=== PATIENT | male | born 1930 | race Caucasian/White ===

== ENCOUNTER 2018-03-15 22:21 | Observation (INO) ==
--- NOTE | 2018-03-15 23:38 | XR ---
EXAM DATE: 03/15/2018 11:13 PM EDT AGE/SEX: 87 years / Male INDICATIONS: Short of breath. CLINICAL DATA: This is the patient's initial encounter. Patient reports that signs and symptoms have been present for 1 day and indicates a pain score of 0/10. MEDICAL/SURGICAL HISTORY: Non-responsive. Non-responsive. COMPARISON: . FINDINGS: Mild patchy airspace disease in the medial right lower lung zone and in the left lower lung zone. The cardiomediastinal contours are unremarkable. Osseous structures are intact. CONCLUSION: 1. Mild patchy airspace disease in the medial right lower lung zone and left lower lung zone near th e base. Findings may reflect atelectasis although aspiration cannot be excluded in the appropriate cl inical setting. Electronically signed by: Renny Spears MD 03/15/2018 11:37 PM EDT
[2018-03-15] MEDS: Sod Chloride 0.9% Inj 1,000 ML IV.CONT SCH (23:58)
[2018-03-16] MEDS ORDERED: Pantoprazole Inj 80 MG in Sodium Chlor 0.9% Inj 35 ML IV.SIG ONE (00:03)
--- NOTE | 2018-03-16 00:03 | ED ---
HPI General Chief complaint: Medical Clearance Stated complaint: Blood in stool Time Seen by Provider: 03/15/18 23:12 Source: patient Mode of arrival: EMS Limitations: no limitations History of Present Illness HPI narrative: The patient is an 87 year old male who presents to the [facility] emergency department with a history of having 2 episodes of bloody stool prior to arrival this evening. The patient reports that there was a lot of blood in the toilet when he went on the second occasion. He denies ever having a GI bleed previously. He does not recall ever having a colonoscopy. The patient was brought in by ambulance services. He denies taking any blood thinners, however he reports that he is on 1 low-dose aspirin daily. He denies having any abdominal pain. He denies having any lightheaded sensation, or shortness of breath. On review of systems otherwise, the patient denies having any known recent fevers, headache, cough, congestion, neck pain, vomiting, diarrhea, urinary symptoms, or neurologic symptoms. Related Data Home Medications Medication Instructions Recorded Confirmed aspirin [Aspirin Low Dose] 81 mg PO DAILY 03/16/18 03/16/18 Allergies Allergy/AdvReac Type Severity Reaction Status Date / Time No Known Allergies Allergy Unknown Uncoded 09/30/06 12:51 Review of Systems ROS: all other systems reviewed are negative PMFSH History History Provided By: Patient Surgical History Surgical History History of knee surgery (Acute) Family History Family History Other Abdominal aortic aneurysm Social History Social History Substance History: No History of Abuse Second Hand Smoke Exposure: No Smoking Status: Never smoker How Often Do You Have a Drink Containing Alcohol: Monthly or less Recent Travel in [facility] within the Last 8 Weeks: No Recent Out of Country Travel within the Last 8 Weeks: No Exam Const General: cooperative, no acute distress and well developed Nutritional Appearance: well nourished Orientation: alert, awake and oriented x3 HENMT Head: normocephalic and atraumatic Nose: no nasal discharge and no epistaxis Mouth: moist mucous membranes Throat: posterior oropharynx normal and uvula midline Eyes Sclera: normal sclerae Pupils: PERRL Neck Neck: no meningeal signs, trachea midline and no JVD Resp Effort & Inspection: no use of accessory muscles Auscultation: clear to auscultation bilaterally Cardio Rate: regular rate Rhythm: regular rhythm Heart Sounds: no murmurs GI Inspection: non-distended Palpation: soft, no hepatosplenomegaly, no guarding, not rigid and nontender Auscultation: normal bowel sounds Rectal Exam: No mass and other (The patient has a hemorrhoidal tag noted, no thrombosed hemorrhoid or anal fissures noted. No tenderness. Normal rectal tone. The patient does have maroon colored blood in the vault. This is Hemoccult positive.) Back/Spine/Pelvis Back: no CVA tenderness Skin General: dry skin (warm) Neuro General: alert, awake and oriented x3 Cranial Nerves: CN's II-XI intact bilaterally Speech: speech normal Motor: strength 5/5 throughout and no movement abnormalities noted Sensory Exam: no sensory deficits noted Extrem General: normal to inspection (2+ pulses in all 4 extremities.), no calf tenderness, no clubbing, no cyanosis and edema (Trace pedal edema bilateral lower extremities.) Laterality: bilaterally Psych Mood: congruent mood Affect: normal affect Judgment: judgment good Course Reevaluation(s) Reevaluation #1: During the patient's observation in the emergency department, the patient did have one episode of large bloody bowel movement. Consultations Consultation #1: The patient's case including history, pertinent physical examination findings, and laboratory studies were discussed with Dr. Sears. It was agreed that the patient would be admitted to the hospitalist service. Initial Documented Vital Signs Temperature 98.3 F 03/15/18 22:50 Pulse Rate 60 03/15/18 22:50 Respiratory Rate 16 03/15/18 22:50 Blood Pressure 170/80 H 03/15/18 22:50 Pulse Oximetry 94 L 03/15/18 22:50 Last Documented Vital Signs Temperature 97.4 F L 03/16/18 16:00 Pulse Rate 71 03/16/18 16:00 Respiratory Rate 17 03/16/18 16:00 Blood Pressure 134/72 03/16/18 16:00 Pulse Oximetry 94 L 03/16/18 16:00 Medical Decision Making MDM Narrative Medical decision making narrative: During the course of the patient's emergency department visit, the patient's history, examination, and differential diagnosis were reviewed with the patient. The patient was placed on a monitoring analyst with oximetry and frequent blood pressure monitoring. The patient had IV access obtained and blood work sent for analysis. A diagnostic evaluation was started regarding the patient's GI bleed. The patient was initially provided normal saline IV fluids. The patient will be started on Protonix 80 mg IV followed by a Protonix drip. The patient's diagnostic studies are remarkable for a white count of 6.6, hemoglobin 14.5, platelets 224 with monocytes 13.9, PT 11.4, INR 1.1, PTT 25.9, chemistry is remarkable for a sodium of 146, chloride 111, BUN 23, GFR 76, calcium 8.2, ammonia levels elevated at 41, troponin I is less than 0.02. The patient had a chest x-ray done that showed mild patchy airspace disease in the medial right lower lung zone and left lower lung zone near the base findings may reflect atelectasis although aspiration cannot be excluded in the appropriate clinical setting according to the reading radiologist. Patient denies any vomiting and has had no symptoms regarding aspiration, therefore I believe this is atelectasis. The patient will be admitted to the hospital for GI bleed. The patient's results were discussed with the patient, including the plan of care. I explained that further testing and/ or monitoring is indicated based on the patient's history, examination, and/ or laboratory findings. Therefore, I recommended admission for additional evaluation. The patient expressed understanding and was agreeable with this plan. The patient was admitted to the hospital in stable condition and sent to a bed under the care of the [facility] service. Medical Screen Exam Complete: Yes Emergency Medical Condition: Yes Differential Diagnosis Differential Diagnosis: Diverticulosis, versus AVM malformation, versus peptic ulcer bleed, versus variceal bleed Medical Records Medical records reviewed: Yes I reviewed the patient's medical records. Lab Data Lab results reviewed: Yes I reviewed the patient's lab results. Result diagrams: 03/16/18 11:30 03/15/18 23:48 Lab Results 03/15/18 03/15/18 03/15/18 Range/Units 23:48 23:48 23:48 WBC 6.6 (4.0-11.0) th/mm3 RBC 4.66 (4.50-5.90) mil/mm3 Hgb 14.5 (13.0-17.0) gm/dL Hct 43.8 (39.0-51.0) % MCV 94.1 (80.0-100.0) fL MCH 31.2 (27.0-34.0) pg MCHC 33.2 (32.0-36.0) % RDW 13.8 (11.6-17.2) % Plt Count 224 (150-450) th/mm3 MPV 8.2 (7.0-11.0) fL Neut % (Auto) 55.3 (16.0-70.0) % Lymph % (Auto) 24.0 (9.0-44.0) % [place] % (Auto) 13.9 H (0.0-8.0) % Eos % (Auto) 5.9 H (0.0-4.0) % Baso % (Auto) 0.9 (0.0-2.0) % Neut # (Auto) 3.7 (1.8-7.7) th/mm3 Lymph # (Auto) 1.6 (1.0-4.8) th/mm3 [place] # (Auto) 0.9 (0.0-0.9) th/mm3 Eos # (Auto) 0.4 (0.0-0.4) th/mm3 Baso # (Auto) 0.1 (0.0-0.2) th/mm3 WBC Differential . Differential Comment Auto diff final PT 11.4 (9.8-11.6) sec INR 1.1 Ratio APTT 25.9 (24.3-30.1) sec Sodium (136-145) meq/L Potassium (3.5-5.1) meq/L Chloride (98-107) meq/L Carbon Dioxide (21.0-32.0) meq/L Anion Gap (5-15) meq/L BUN (7-18) mg/dL Creatinine (0.60-1.30) mg/dL Estimated GFR (>89) mL/min Random Glucose (74-106) mg/dL Calcium (8.5-10.1) mg/dL Magnesium (1.5-2.5) mg/dL Total Bilirubin (0.2-1.0) mg/dL AST (15-37) U/L ALT (12-78) U/L Alkaline Phosphatase (45-117) U/L Ammonia 41 H (11-32) mcmol/L Troponin I (0.02-0.05) ng/mL Total Protein (6.4-8.2) g/dL Albumin (3.4-5.0) g/dL Lipase (73-393) U/L Blood Type Blood Type Recheck Antibody Screen 03/15/18 03/15/18 03/16/18 Range/Units 23:48 23:48 03:23 WBC (4.0-11.0) th/mm3 RBC (4.50-5.90) mil/mm3 Hgb 13.7 (13.0-17.0) gm/dL Hct 40.7 (39.0-51.0) % MCV (80.0-100.0) fL MCH (27.0-34.0) pg MCHC (32.0-36.0) % RDW (11.6-17.2) % Plt Count (150-450) th/mm3 MPV (7.0-11.0) fL Neut % (Auto) (16.0-70.0) % Lymph % (Auto) (9.0-44.0) % [place] % (Auto) (0.0-8.0) % Eos % (Auto) (0.0-4.0) % Baso % (Auto) (0.0-2.0) % Neut # (Auto) (1.8-7.7) th/mm3 Lymph # (Auto) (1.0-4.8) th/mm3 [place] # (Auto) (0.0-0.9) th/mm3 Eos # (Auto) (0.0-0.4) th/mm3 Baso # (Auto) (0.0-0.2) th/mm3 WBC Differential Differential Comment PT (9.8-11.6) sec INR Ratio APTT (24.3-30.1) sec Sodium 146 H (136-145) meq/L Potassium 4.2 (3.5-5.1) meq/L Chloride 111 H (98-107) meq/L Carbon Dioxide 28.6 (21.0-32.0) meq/L Anion Gap 6 (5-15) meq/L BUN 23 H (7-18) mg/dL Creatinine 0.94 (0.60-1.30) mg/dL Estimated GFR 76 L (>89) mL/min Random Glucose 106 (74-106) mg/dL Calcium 8.2 L (8.5-10.1) mg/dL Magnesium 2.2 (1.5-2.5) mg/dL Total Bilirubin 0.8 (0.2-1.0) mg/dL AST 23 (15-37) U/L ALT 27 (12-78) U/L Alkaline Phosphatase 68 (45-117) U/L Ammonia (11-32) mcmol/L Troponin I Less than 0.02 L (0.02-0.05) ng/mL Total Protein 6.5 (6.4-8.2) g/dL Albumin 3.5 (3.4-5.0) g/dL Lipase 93 (73-393) U/L Blood Type A Positive Blood Type Recheck Required Antibody Screen Negative 03/16/18 Range/Units 11:30 WBC (4.0-11.0) th/mm3 RBC (4.50-5.90) mil/mm3 Hgb 13.1 (13.0-17.0) gm/dL Hct 39.7 (39.0-51.0) % MCV (80.0-100.0) fL MCH (27.0-34.0) pg MCHC (32.0-36.0) % RDW (11.6-17.2) % Plt Count (150-450) th/mm3 MPV (7.0-11.0) fL Neut % (Auto) (16.0-70.0) % Lymph % (Auto) (9.0-44.0) % [place] % (Auto) (0.0-8.0) % Eos % (Auto) (0.0-4.0) % Baso % (Auto) (0.0-2.0) % Neut # (Auto) (1.8-7.7) th/mm3 Lymph # (Auto) (1.0-4.8) th/mm3 [place] # (Auto) (0.0-0.9) th/mm3 Eos # (Auto) (0.0-0.4) th/mm3 Baso # (Auto) (0.0-0.2) th/mm3 WBC Differential Differential Comment PT (9.8-11.6) sec INR Ratio APTT (24.3-30.1) sec Sodium (136-145) meq/L Potassium (3.5-5.1) meq/L Chloride (98-107) meq/L Carbon Dioxide (21.0-32.0) meq/L Anion Gap (5-15) meq/L BUN (7-18) mg/dL Creatinine (0.60-1.30) mg/dL Estimated GFR (>89) mL/min Random Glucose (74-106) mg/dL Calcium (8.5-10.1) mg/dL Magnesium (1.5-2.5) mg/dL Total Bilirubin (0.2-1.0) mg/dL AST (15-37) U/L ALT (12-78) U/L Alkaline Phosphatase (45-117) U/L Ammonia (11-32) mcmol/L Troponin I (0.02-0.05) ng/mL Total Protein (6.4-8.2) g/dL Albumin (3.4-5.0) g/dL Lipase (73-393) U/L Blood Type Blood Type Recheck Antibody Screen Imaging Data Radiologist's impression: Chest X-Ray 03/15/18 23:13 CONCLUSION: 1. Mild patchy airspace disease in the medial right lower lung zone and left lower lung zone near the base. Findings may reflect atelectasis although aspiration cannot be excluded in the appropriate clinical setting. Discharge Plan Discharge Disposition Patient Disposition: 30 Still Patient Discharge Details Diagnosis: Acute GI bleeding Physicians Team ED Provider: Milla Sosa Primary Care Provider: UNKNOWN, Attending Provider: Tino Alvarado Other Providers: Donald Luis Discharge Interventions Interventions: ED Discharge Assessment Last Done: 03/16/18 05:23 Status ED Status: Left Department Discharge Information Discharge Date/Time: 03/16/18 04:30
[2018-03-16 00:11] LABS: Baso # (Auto) 0.1 th/mm3 (0.0-0.2); Baso % (Auto) 0.9 % (0.0-2.0); Eos # (Auto) 0.4 th/mm3 (0.0-0.4); Eos % (Auto) 5.9 % (0.0-4.0); Hematocrit 43.8 % (39.0-51.0); Hemoglobin 14.5 gm/dL (13.0-17.0); Lymph # (Auto) 1.6 th/mm3 (1.0-4.8); Mean Corpuscular HGB Conc 33.2 % (32.0-36.0); Mean Corpuscular Hemoglobin 31.2 pg (27.0-34.0); Mean Corpuscular Volume 94.1 fL (80.0-100.0); Mean Platelet Volume 8.2 fL (7.0-11.0); Mono # (Auto) 0.9 th/mm3 (0.0-0.9); Mono % (Auto) 13.9 % (0.0-8.0); Neut # (Auto) 3.7 th/mm3 (1.8-7.7); Neut % (Auto) 55.3 % (16.0-70.0); Platelet Count 224 th/mm3 (150-450); Red Blood Count 4.66 mil/mm3 (4.50-5.90); Red Cell Distribution Width 13.8 % (11.6-17.2); White Blood Count 6.6 th/mm3 (4.0-11.0)
[2018-03-16 00:21] LABS: Activated Partial Thrombo Time 25.9 sec (24.3-30.1); INR 1.1 Ratio; Prothrombin Time 11.4 sec (9.8-11.6)
[2018-03-16 00:29] LABS: Alanine Aminotransferase 27 U/L (12-78); Albumin 3.5 g/dL (3.4-5.0); Anion Gap 6 meq/L (5-15); Aspartate Aminotransferase 23 U/L (15-37); Blood Urea Nitrogen 23 mg/dL (7-18); Calcium 8.2 mg/dL (8.5-10.1); Carbon Dioxide 28.6 meq/L (21.0-32.0); Chloride 111 meq/L (98-107); Glomerular Filtration Rate 76 mL/min (>89); Glucose,Random 106 mg/dL (74-106); Lipase 93 U/L (73-393); Magnesium 2.2 mg/dL (1.5-2.5); Potassium 4.2 meq/L (3.5-5.1); Sodium 146 meq/L (136-145)
[2018-03-16 00:32] LABS: Alkaline Phosphatase 68 U/L (45-117); Total Protein 6.5 g/dL (6.4-8.2)
[2018-03-16] MEDS: Pantoprazole Inj 80 MG in Sodium Chlor 0.9% Inj 100 ML IV.CONT SCH ×2 (01:43→12:21)
--- NOTE | 2018-03-16 02:51 | P.HP ---
History of Present Illness Service: [facility] Primary Care Physician: UNKNOWN History of Present Illness: 87-year-old male with past medical history significant for hyperlipidemia presents to the emergency department for the evaluation of 2 episodes of bright red blood in his stool. The patient reports he had 2 episodes of large volume bloody stool prior to his arrival in the emergency department. He states during the second episode he became diaphoretic. He denies any dizziness or lightheadedness. No chest pain or shortness of breath. He takes aspirin daily. He is not on the other anticoagulation. No abdominal pain. No nausea/ vomiting. No fevers/chills. No lateralizing signs/symptoms. Review of Systems All other systems reviewed negative except as stated [facility] - History History Provided By: Patient - Medical History Medical History: Medical History (Last Reviewed 03/16/18 @ 02:48 by Brenda Sears MD) High cholesterol Osteoarthritis - Surgical History Surgical History: Surgical History (Last Updated 03/16/18 @ 02:48 by Brenda Sears MD) History of knee surgery - Family History Family History: Family History (Last Updated 03/16/18 @ 02:48 by Brenda Sears MD) Other Abdominal aortic aneurysm - Tobacco History Second Hand Smoke Exposure: No Smoking Status: Never smoker - Alcohol History How Often Do You Have a Drink Containing Alcohol: Monthly or less - Substance Use History Substance History: No History of Abuse - Travel History Recent Travel in the [place] Within the Last 8 Weeks: No Recent Travel Out of the Country Within the Last 8 Weeks: No - Immunization History Tetanus Immunization: Unsure Hx Influenza Vaccine This Season: Yes Medications and Allergies Active Medications: Active Medications Sodium Chloride (Ns Inj) 1,000 mls @ 100 mls/hr IV.CONT .Q10H LALITA Last Admin: 03/15/18 23:58 Dose: 100 mls/hr Pantoprazole Sodium 80 mg/ (Sodium Chloride) 100 mls @ 10 mls/hr IV.CONT CONT LALITA Last Admin: 03/16/18 01:43 Dose: 10 mls/hr Sodium Chloride (Ns Inj) 1,000 mls @ 125 mls/hr IV.CONT .Q8H LALITA Ondansetron HCl (Zofran Inj) 4 mg IV.PUSH Q6H PRN PRN Reason: NAUSEA Sodium Chloride (Ns Flush) 2 ml IV.FLUSH PRN PRN PRN Reason: FLUSH AFTER USING IV ACCESS Sodium Chloride (Ns Flush) 2 ml IV.FLUSH BID LALITA Sodium Chloride (Ns Flush) 2 ml IV.FLUSH PRN PRN PRN Reason: FLUSH AFTER USING IV ACCESS Allergies Allergy/AdvReac Type Severity Reaction Status Date / Time No Known Allergies Allergy Unknown Uncoded 09/30/06 12:51 Home Medications Medication Instructions Recorded Confirmed Type aspirin [Aspirin Low Dose] 81 mg PO DAILY 03/16/18 03/16/18 History Exam Vital signs: Vital Signs 03/15/18 22:50 03/16/18 00:00 03/16/18 01:00 Temperature 98.3 F Pulse Rate 60 56 L 58 L Respiratory Rate 16 Blood Pressure 170/80 H 146/75 H 160/77 H Pulse Oximetry 94 L 95 97 03/16/18 02:00 Temperature Pulse Rate 58 L Respiratory Rate Blood Pressure 176/84 H Pulse Oximetry 96 Intake & Output 03/15/18 03/15/18 03/16/18 06:59 18:59 06:59 Intake Total 35 / 35 Balance 35 / 35 Intake: IV 35 / 35 Protonix Inj 80 MG In NS Inj 35 35 / 35 ML @ 420 mls/hr IV.SIG BOLUS ONE Rx#:[id number] Narrative: Gen.: No acute distress Head: Normocephalic. Atraumatic. EENT: Pupils equal round and reactive to light. Nose without drainage. Airway intact. Throat without injection. Cardiovascular: Regular rate and rhythm. No murmurs, rubs or gallops. Respiratory: Lungs clear to auscultation bilaterally. No wheezes or rhonchi. Abdomen: Soft, nontender, nondistended. No peritoneal signs. Musculoskeletal: No gross deformities. No edema. Skin: No obvious rashes or erythema. Neuro: Sensory and motor grossly intact. Cranial nerves II through XII grossly intact. Results - Labs CBC & Chem 7: 03/15/18 23:48 03/15/18 23:48 Labs: Laboratory Results - last 24 hr 03/15/18 03/15/18 03/15/18 23:48 23:48 23:48 WBC 6.6 RBC 4.66 Hgb 14.5 Hct 43.8 MCV 94.1 MCH 31.2 MCHC 33.2 RDW 13.8 Plt Count 224 MPV 8.2 Neut % (Auto) 55.3 Lymph % (Auto) 24.0 [place] % (Auto) 13.9 H Eos % (Auto) 5.9 H Baso % (Auto) 0.9 Neut # (Auto) 3.7 Lymph # (Auto) 1.6 [place] # (Auto) 0.9 Eos # (Auto) 0.4 Baso # (Auto) 0.1 WBC Differential . Differential Comment Auto diff final PT 11.4 INR 1.1 APTT 25.9 Sodium Potassium Chloride Carbon Dioxide Anion Gap BUN Creatinine Estimated GFR Random Glucose Calcium Magnesium Total Bilirubin AST ALT Alkaline Phosphatase Ammonia 41 H Troponin I Total Protein Albumin Lipase Blood Type Blood Type Recheck Antibody Screen 03/15/18 03/15/18 23:48 23:48 WBC RBC Hgb Hct MCV MCH MCHC RDW Plt Count MPV Neut % (Auto) Lymph % (Auto) [place] % (Auto) Eos % (Auto) Baso % (Auto) Neut # (Auto) Lymph # (Auto) [place] # (Auto) Eos # (Auto) Baso # (Auto) WBC Differential Differential Comment PT INR APTT Sodium 146 H Potassium 4.2 Chloride 111 H Carbon Dioxide 28.6 Anion Gap 6 BUN 23 H Creatinine 0.94 Estimated GFR 76 L Random Glucose 106 Calcium 8.2 L Magnesium 2.2 Total Bilirubin 0.8 AST 23 ALT 27 Alkaline Phosphatase 68 Ammonia Troponin I Less than 0.02 L Total Protein 6.5 Albumin 3.5 Lipase 93 Blood Type A Positive Blood Type Recheck Required Antibody Screen Negative - Imaging Impressions Chest X-Ray 03/15/18 23:13 CONCLUSION: 1. Mild patchy airspace disease in the medial right lower lung zone and left lower lung zone near the base. Findings may reflect atelectasis although aspiration cannot be excluded in the appropriate clinical setting. Caprini VTE Risk Assessment Caprini VTE Risk Assessment: Moderate/High Risk (score >= 2) Caprini Risk Assessment Model: Point Value = 1 Point Value = 2 Point Value = 3 Point Value = 5 Age 41-60 Minor surgery BMI > 25 kg/m2 Swollen legs Varicose veins or History of unexplained or recurrent spontaneous Oral contraceptives or hormone replacement Sepsis (< 1 month) Serious lung disease, including pneumonia (< 1 month) Abnormal pulmonary function Acute myocardial infarction Congestive heart failure (< 1 month) History of inflammatory bowel disease Medical patient at bed rest Age 61-74 Arthroscopic surgery Major open surgery (> 45 min) Laparoscopic surgery (> 45 min) Malignancy Confined to bed (> 72 hours) Immobilizing plaster cast Central venous access Age >= 75 History of VTE Family history of VTE Factor V Leiden Prothrombin [id number] Lupus anticoagulant Anticardiolipin antibodies Elevated serum homocysteine Heparin-induced thrombocytopenia Other congenital or acquired thrombophilia Stroke (< 1 month) Elective arthroplasty Hip, pelvis, or leg fracture Acute spinal cord injury (< 1 month) Prophylaxis Regimen: Total Risk Factor Score Risk Level Prophylaxis Regimen 0-1 Low Early ambulation 2 Moderate Order ONE of the following: *Sequential Compression Device (SCD) *Heparin 5000 units SQ BID 3-4 Higher Order ONE of the following medications: *Heparin 5000 units SQ TID *Enoxaparin/Lovenox 40 mg SQ daily (WT < 150 kg, CrCl > 30 mL/min) *Enoxaparin/Lovenox 30 mg SQ daily (WT < 150 kg, CrCl > 10-29 mL/min) *Enoxaparin/Lovenox 30 mg SQ BID (WT < 150 kg, CrCl > 30 mL/min) AND/OR *Sequential Compression Device (SCD) 5 or more Highest Order ONE of the following medications: *Heparin 5000 units SQ TID (Preferred with Epidurals) *Enoxaparin/Lovenox 40 mg SQ daily (WT < 150 kg, CrCl > 30 mL/min) *Enoxaparin/Lovenox 30 mg SQ daily (WT < 150 kg, CrCl > 10-29 mL/min) *Enoxaparin/Lovenox 30 mg SQ BID (WT < 150 kg, CrCl > 30 mL/min) AND *Sequential Compression Device (SCD) Assessment and Plan - Plan Assessment/plan: 1. Lower GI bleed Serial H&H IV Protonix Gastroenterology consulted, appreciate assistance Holding home aspirin 2. Hyperlipidemia Patient is not currently on statin FEN N.p.o. Electrolytes: Monitor and replete as needed NS at 125 cc/hour Holding pharmacologic anticoagulation secondary to active GI bleed
[2018-03-16] MEDS: Sod Chloride 0.9% Inj 1,000 ML IV.CONT SCH ×4 (03:11→20:39)
[2018-03-16 04:06] LABS: Hematocrit 40.7 % (39.0-51.0); Hemoglobin 13.7 gm/dL (13.0-17.0)
[2018-03-16 11:58] LABS: Hematocrit 39.7 % (39.0-51.0); Hemoglobin 13.1 gm/dL (13.0-17.0)
--- NOTE | 2018-03-16 12:18 | P.CONGI ---
History of Present Illness Consult date: 03/16/18 Consult reason: Lower Chief complaint: GI Bleed History of Present Illness: This is a obese 87-year-old male who came in the hospital on 03/15/2018 with symptoms of rectal bleeding according to the patient and the record he had 2 large bloody bowel movements that started about 830 on 03/15/2018. Patient states that the bowel movements awakened him and he decided to come to the ER for further evaluation he had a total of 5 bright red bloody bowel movements since 830 this past p.m. patient denies any obvious dizziness or weakness but does note some occasional straining with defecation. Patient denies any major history of diarrhea or constipation and denies any obvious hematemesis. patient states his norm is 1 bowel movement daily usually in the a.m. Patient denies any previous colonoscopy or endoscopy and no family history of colon cancer. Current abdominal pain no fever no chills. Hemoglobin initially was 14.5 on admission now 13.7, bilirubin and LFTs is normal. Ammonia level 47 PT/INR 1.1. Gastroenterology has been consulted to assist in his care. <Ana Kimball - Last Filed: 03/16/18 12:11> Review of Systems All other systems reviewed negative except as stated in HPI <Ana Kimball - Last Filed: 03/16/18 12:11> PMFSH - History History Provided By: Patient - Medical History Medical History: Medical History (Last Reviewed 03/16/18 @ 02:48 by Brenda Sears MD) High cholesterol Osteoarthritis - Surgical History Surgical History: Surgical History (Last Updated 03/16/18 @ 02:48 by Brenda Sears MD) History of knee surgery - Family History Family History: Family History (Last Updated 03/16/18 @ 02:48 by Brenda Sears MD) Other Abdominal aortic aneurysm - Tobacco History Second Hand Smoke Exposure: No Smoking Status: Never smoker - Alcohol History How Often Do You Have a Drink Containing Alcohol: Monthly or less - Substance Use History Substance History: No History of Abuse - Travel History Recent Travel in the [facility] Within the Last 8 Weeks: No Recent Travel Out of the Country Within the Last 8 Weeks: No - Immunization History Tetanus Immunization: Unsure Hx Influenza Vaccine This Season: Yes <Ana Kimball - Last Filed: 03/16/18 12:11> - Medical History Medical History: Medical History (Last Reviewed 03/16/18 @ 02:48 by Brenda Sears MD) High cholesterol Osteoarthritis - Surgical History Surgical History: Surgical History (Last Updated 03/16/18 @ 02:48 by Brenda Sears MD) History of knee surgery - Family History Family History: Family History (Last Updated 03/16/18 @ 02:48 by Brenda Sears MD) Other Abdominal aortic aneurysm <Donald uLis E - Last Filed: 03/16/18 16:34> Medications and Allergies Active Medications: Active Medications Pantoprazole Sodium 80 mg/ (Sodium Chloride) 100 mls @ 10 mls/hr IV.CONT CONT [facility] Last Admin: 03/16/18 01:43 Dose: 10 mls/hr Sodium Chloride (Ns Inj) 1,000 mls @ 125 mls/hr IV.CONT .Q8H [facility] Last Admin: 03/16/18 03:11 Dose: 125 mls/hr Ondansetron HCl (Zofran Inj) 4 mg IV.PUSH Q6H PRN PRN Reason: NAUSEA Polyethylene Glycol/Electrolytes (Colyte Liq) 4,000 ml PO ONCE ONE Stop: 03/16/18 15:01 Sodium Chloride (Ns Flush) 2 ml IV.FLUSH BID [facility] Last Admin: 03/16/18 08:19 Dose: Not Given Sodium Chloride (Ns Flush) 2 ml IV.FLUSH PRN PRN PRN Reason: FLUSH AFTER USING IV ACCESS <Ana Kimball M - Last Filed: 03/16/18 12:11> Active Medications: Active Medications Pantoprazole Sodium 80 mg/ (Sodium Chloride) 100 mls @ 10 mls/hr IV.CONT CONT [facility] Last Admin: 03/16/18 12:21 Dose: 10 mls/hr Sodium Chloride (Ns Inj) 1,000 mls @ 125 mls/hr IV.CONT .Q8H [facility] Last Admin: 03/16/18 12:23 Dose: 125 mls/hr Ondansetron HCl (Zofran Inj) 4 mg IV.PUSH Q6H PRN PRN Reason: NAUSEA Sodium Chloride (Ns Flush) 2 ml IV.FLUSH BID [facility] Last Admin: 03/16/18 08:19 Dose: Not Given Sodium Chloride (Ns Flush) 2 ml IV.FLUSH PRN PRN PRN Reason: FLUSH AFTER USING IV ACCESS <Donald Luis - Last Filed: 03/16/18 16:34> Allergies Allergy/AdvReac Type Severity Reaction Status Date / Time No Known Allergies Allergy Unknown Uncoded 09/30/06 12:51 Home Medications Medication Instructions Recorded Confirmed Type aspirin [Aspirin Low Dose] 81 mg PO DAILY 03/16/18 03/16/18 History Exam Vital signs: Vital Signs 03/15/18 22:50 03/16/18 00:00 03/16/18 01:00 Temperature 98.3 F Pulse Rate 60 56 L 58 L Respiratory Rate 16 Blood Pressure 170/80 H 146/75 H 160/77 H Pulse Oximetry 94 L 95 97 03/16/18 02:00 03/16/18 04:00 03/16/18 08:00 Temperature 97.9 F 97.9 F Pulse Rate 58 L 50 L 45 L Respiratory Rate 18 17 Blood Pressure 176/84 H 162/81 H 90/52 L Pulse Oximetry 96 94 L 92 L 03/16/18 08:19 Temperature Pulse Rate 56 L Respiratory Rate Blood Pressure 127/65 Pulse Oximetry Intake & Output 03/15/18 03/16/18 03/16/18 18:59 06:59 18:59 Intake Total 35 / 35 Balance 35 / 35 Weight 101.5 kg Intake: IV 35 / 35 Protonix Inj 80 MG In NS Inj 35 35 / 35 ML @ 420 mls/hr IV.SIG [facility] Rx#:[id number] Oral 0 / 0 Other: Date of Last Bowel Movement 03/16/18 03/16/18 Weight On Admission 101.5 kg - Constitutional obese, cooperative - Routine HEENT Exam Head: Present: normocephalic ENT: Present: mucous membranes moist - Routine Respiratory Exam Present: accessory muscle use (No obvious shortness of breath) - Routine Cardiovascular Exam Present: S1, S2 - Routine Abdominal Exam Present: normoactive bowel sounds (Round, no obvious abdominal pain denies any cramping no distention) - Routine Skin Exam Present: intact - Routine Neurological Exam Present: alert <Ana Kimball - Last Filed: 03/16/18 12:11> Vital signs: Vital Signs 03/15/18 22:50 03/16/18 00:00 03/16/18 01:00 Temperature 98.3 F Pulse Rate 60 56 L 58 L Respiratory Rate 16 Blood Pressure 170/80 H 146/75 H 160/77 H Pulse Oximetry 94 L 95 97 03/16/18 02:00 03/16/18 04:00 03/16/18 08:00 Temperature 97.9 F 97.9 F Pulse Rate 58 L 50 L 45 L Respiratory Rate 18 17 Blood Pressure 176/84 H 162/81 H 90/52 L Pulse Oximetry 96 94 L 92 L 03/16/18 08:19 03/16/18 12:00 03/16/18 16:00 Temperature 98.2 F 97.4 F L Pulse Rate 56 L 68 71 Respiratory Rate 17 Blood Pressure 127/65 113/67 134/72 Pulse Oximetry 17 L 94 L Intake & Output 03/15/18 03/16/18 03/16/18 18:59 06:59 18:59 Intake Total 35 / 35 1100 / 1100 Balance 35 / 35 1100 / 1100 Weight 101.5 kg Intake: IV 35 / 35 1100 / 1100 Protonix Inj 80 MG In NS Inj 100 / 100 100 ML @ 10 mls/hr IV.CONT CONT [facility] Rx#:[id number] NS Inj 1,000 ML @ 125 mls/hr IV 1000 / 1000 .CONT .Q8H [facility] Rx#:[id number] Protonix Inj 80 MG In NS Inj 35 35 / 35 ML @ 420 mls/hr IV.SIG [facility] Rx#:[id number] Oral 0 / 0 Other: Date of Last Bowel Movement 03/16/18 03/16/18 Weight On Admission 101.5 kg <Donald Luis - Last Filed: 03/16/18 16:34> Results - Labs CBC & Chem 7: 03/16/18 11:30 03/15/18 23:48 Labs: Laboratory Results - last 24 hr 03/15/18 03/15/18 03/15/18 23:48 23:48 23:48 WBC 6.6 RBC 4.66 Hgb 14.5 Hct 43.8 MCV 94.1 MCH 31.2 MCHC 33.2 RDW 13.8 Plt Count 224 MPV 8.2 Neut % (Auto) 55.3 Lymph % (Auto) 24.0 [place] % (Auto) 13.9 H Eos % (Auto) 5.9 H Baso % (Auto) 0.9 Neut # (Auto) 3.7 Lymph # (Auto) 1.6 [place] # (Auto) 0.9 Eos # (Auto) 0.4 Baso # (Auto) 0.1 WBC Differential . Differential Comment Auto diff final PT 11.4 INR 1.1 APTT 25.9 Sodium Potassium Chloride Carbon Dioxide Anion Gap BUN Creatinine Estimated GFR Random Glucose Calcium Magnesium Total Bilirubin AST ALT Alkaline Phosphatase Ammonia 41 H Troponin I Total Protein Albumin Lipase Blood Type Blood Type Recheck Antibody Screen 03/15/18 03/15/18 03/16/18 23:48 23:48 03:23 WBC RBC Hgb 13.7 Hct 40.7 MCV MCH MCHC RDW Plt Count MPV Neut % (Auto) Lymph % (Auto) [place] % (Auto) Eos % (Auto) Baso % (Auto) Neut # (Auto) Lymph # (Auto) [place] # (Auto) Eos # (Auto) Baso # (Auto) WBC Differential Differential Comment PT INR APTT Sodium 146 H Potassium 4.2 Chloride 111 H Carbon Dioxide 28.6 Anion Gap 6 BUN 23 H Creatinine 0.94 Estimated GFR 76 L Random Glucose 106 Calcium 8.2 L Magnesium 2.2 Total Bilirubin 0.8 AST 23 ALT 27 Alkaline Phosphatase 68 Ammonia Troponin I Less than 0.02 L Total Protein 6.5 Albumin 3.5 Lipase 93 Blood Type A Positive Blood Type Recheck Required Antibody Screen Negative 03/16/18 11:30 WBC RBC Hgb 13.1 Hct 39.7 MCV MCH MCHC RDW Plt Count MPV Neut % (Auto) Lymph % (Auto) [place] % (Auto) Eos % (Auto) Baso % (Auto) Neut # (Auto) Lymph # (Auto) [place] # (Auto) Eos # (Auto) Baso # (Auto) WBC Differential Differential Comment PT INR APTT Sodium Potassium Chloride Carbon Dioxide Anion Gap BUN Creatinine Estimated GFR Random Glucose Calcium Magnesium Total Bilirubin AST ALT Alkaline Phosphatase Ammonia Troponin I Total Protein Albumin Lipase Blood Type Blood Type Recheck Antibody Screen - Imaging Impressions Chest X-Ray 03/15/18 23:13 CONCLUSION: 1. Mild patchy airspace disease in the medial right lower lung zone and left lower lung zone near the base. Findings may reflect atelectasis although aspiration cannot be excluded in the appropriate clinical setting. <Ana Kimball - Last Filed: 03/16/18 12:11> - Labs CBC & Chem 7: 03/16/18 11:30 03/15/18 23:48 Labs: Laboratory Results - last 24 hr 03/15/18 03/15/18 03/15/18 23:48 23:48 23:48 WBC 6.6 RBC 4.66 Hgb 14.5 Hct 43.8 MCV 94.1 MCH 31.2 MCHC 33.2 RDW 13.8 Plt Count 224 MPV 8.2 Neut % (Auto) 55.3 Lymph % (Auto) 24.0 [place] % (Auto) 13.9 H Eos % (Auto) 5.9 H Baso % (Auto) 0.9 Neut # (Auto) 3.7 Lymph # (Auto) 1.6 [place] # (Auto) 0.9 Eos # (Auto) 0.4 Baso # (Auto) 0.1 WBC Differential . Differential Comment Auto diff final PT 11.4 INR 1.1 APTT 25.9 Sodium Potassium Chloride Carbon Dioxide Anion Gap BUN Creatinine Estimated GFR Random Glucose Calcium Magnesium Total Bilirubin AST ALT Alkaline Phosphatase Ammonia 41 H Troponin I Total Protein Albumin Lipase Blood Type Blood Type Recheck Antibody Screen 03/15/18 03/15/18 03/16/18 23:48 23:48 03:23 WBC RBC Hgb 13.7 Hct 40.7 MCV MCH MCHC RDW Plt Count MPV Neut % (Auto) Lymph % (Auto) [place] % (Auto) Eos % (Auto) Baso % (Auto) Neut # (Auto) Lymph # (Auto) [place] # (Auto) Eos # (Auto) Baso # (Auto) WBC Differential Differential Comment PT INR APTT Sodium 146 H Potassium 4.2 Chloride 111 H Carbon Dioxide 28.6 Anion Gap 6 BUN 23 H Creatinine 0.94 Estimated GFR 76 L Random Glucose 106 Calcium 8.2 L Magnesium 2.2 Total Bilirubin 0.8 AST 23 ALT 27 Alkaline Phosphatase 68 Ammonia Troponin I Less than 0.02 L Total Protein 6.5 Albumin 3.5 Lipase 93 Blood Type A Positive Blood Type Recheck Required Antibody Screen Negative 03/16/18 11:30 WBC RBC Hgb 13.1 Hct 39.7 MCV MCH MCHC RDW Plt Count MPV Neut % (Auto) Lymph % (Auto) [place] % (Auto) Eos % (Auto) Baso % (Auto) Neut # (Auto) Lymph # (Auto) [place] # (Auto) Eos # (Auto) Baso # (Auto) WBC Differential Differential Comment PT INR APTT Sodium Potassium Chloride Carbon Dioxide Anion Gap BUN Creatinine Estimated GFR Random Glucose Calcium Magnesium Total Bilirubin AST ALT Alkaline Phosphatase Ammonia Troponin I Total Protein Albumin Lipase Blood Type Blood Type Recheck Antibody Screen - Imaging Impressions Chest X-Ray 03/15/18 23:13 CONCLUSION: 1. Mild patchy airspace disease in the medial right lower lung zone and left lower lung zone near the base. Findings may reflect atelectasis although aspiration cannot be excluded in the appropriate clinical setting. <Donald Luis - Last Filed: 03/16/18 16:34> Assessment and Plan - Plan 87-year-old male who came in the hospital on 03/15/2018 with symptoms of rectal bleeding according to the patient and the record he had 2 large bloody bowel movements that started about 830 on 03/15/2018. Patient states that the bowel movements awakened him and he decided to come to the ER for further evaluation he had a total of 5 bright red bloody bowel movements since 830 this past p.m. patient denies any obvious dizziness or weakness but does note some occasional straining with defecation. Patient denies any major history of diarrhea or constipation and denies any obvious hematemesis. patient states his norm is 1 bowel movement daily usually in the a.m. Patient denies any previous colonoscopy or endoscopy and no family history of colon cancer. Current abdominal pain no fever no chills. Hemoglobin initially was 14.5 on admission now 13.7, bilirubin and LFTs is normal. Ammonia level 47 PT/INR 1.1. Gastroenterology has been consulted to assist in his care. Bright red rectal bleeding could be related to hemorrhoids versus diverticular disease. No previous EGD or colonoscopy or colon cancer Mildly elevated ammonia level in the absence of any known liver disease, no encephalopathy noted Plan Diet clear liquids today Consent for colonoscopy in a.m. N.p.o. at midnight GoLYTELY prep Monitor labs and repeat ammonia level in a.m. Monitor hemoglobin and other labs Supportive care Further recommendations to follow Patient was seen per myself and Dr. Luis, note was written on his behalf <Ana Kimball M - Last Filed: 03/16/18 12:11> - Plan Patient seen and examined Agree with above Continue with current supportive care Monitor labs Plan for colonoscopy tomorrow <Donald Luis E - Last Filed: 03/16/18 16:34>
--- NOTE | 2018-03-16 13:30 | P.PN ---
Subjective Interval history: Follow-up visit for GI bleed. Patient seen and examined sitting up in bed having liquid meal in no acute distress. He denies any nausea, vomiting, abdominal pain or discomfort, dizziness, lightheadedness, cough or shortness of breath. He reports that he is feeling fine and was seen by a doctor and was told he will have a procedure tomorrow. Physical Exam Vital signs: Vital Signs 03/15/18 22:50 03/16/18 00:00 03/16/18 01:00 Temperature 98.3 F Pulse Rate 60 56 L 58 L Respiratory Rate 16 Blood Pressure 170/80 H 146/75 H 160/77 H Pulse Oximetry 94 L 95 97 03/16/18 02:00 03/16/18 04:00 03/16/18 08:00 Temperature 97.9 F 97.9 F Pulse Rate 58 L 50 L 45 L Respiratory Rate 18 17 Blood Pressure 176/84 H 162/81 H 90/52 L Pulse Oximetry 96 94 L 92 L 03/16/18 08:19 03/16/18 12:00 Temperature 98.2 F Pulse Rate 56 L 68 Respiratory Rate Blood Pressure 127/65 113/67 Pulse Oximetry 17 L Intake & Output 03/15/18 03/16/18 03/16/18 18:59 06:59 18:59 Intake Total 35 / 35 1100 / 1100 Balance 35 / 35 1100 / 1100 Weight 101.5 kg Intake: IV 35 / 35 1100 / 1100 Protonix Inj 80 MG In NS Inj 100 / 100 100 ML @ 10 mls/hr IV.CONT CONT [facility] Rx#:[id number] NS Inj 1,000 ML @ 125 mls/hr IV 1000 / 1000 .CONT .Q8H [facility] Rx#:[id number] Protonix Inj 80 MG In NS Inj 35 35 / 35 ML @ 420 mls/hr IV.SIG BOLUS ONE Rx#:[id number] Oral 0 / 0 Other: Date of Last Bowel Movement 03/16/18 03/16/18 Weight On Admission 101.5 kg Narrative: Gen.: No acute distress Head: Normocephalic. Atraumatic. EENT: Pupils equal round and reactive to light. Nose without drainage. Airway intact. Throat without injection. Cardiovascular: Regular rate and rhythm. No murmurs, rubs or gallops. Respiratory: Lungs clear to auscultation bilaterally. Abdomen: Soft, nontender, nondistended. Positive bowel sounds. Musculoskeletal: No gross deformities. No edema. Skin: No obvious rashes or erythema. Neuro: Sensory and motor grossly intact. Cranial nerves II through XII grossly intact. Results - Labs CBC & Chem 7: 03/16/18 11:30 03/15/18 23:48 Laboratory Results - last 24 hr 03/15/18 03/15/18 03/15/18 23:48 23:48 23:48 WBC 6.6 RBC 4.66 Hgb 14.5 Hct 43.8 MCV 94.1 MCH 31.2 MCHC 33.2 RDW 13.8 Plt Count 224 MPV 8.2 Neut % (Auto) 55.3 Lymph % (Auto) 24.0 [place] % (Auto) 13.9 H Eos % (Auto) 5.9 H Baso % (Auto) 0.9 Neut # (Auto) 3.7 Lymph # (Auto) 1.6 [place] # (Auto) 0.9 Eos # (Auto) 0.4 Baso # (Auto) 0.1 WBC Differential . Differential Comment Auto diff final PT 11.4 INR 1.1 APTT 25.9 Sodium Potassium Chloride Carbon Dioxide Anion Gap BUN Creatinine Estimated GFR Random Glucose Calcium Magnesium Total Bilirubin AST ALT Alkaline Phosphatase Ammonia 41 H Troponin I Total Protein Albumin Lipase Blood Type Blood Type Recheck Antibody Screen 03/15/18 03/15/18 03/16/18 23:48 23:48 03:23 WBC RBC Hgb 13.7 Hct 40.7 MCV MCH MCHC RDW Plt Count MPV Neut % (Auto) Lymph % (Auto) [place] % (Auto) Eos % (Auto) Baso % (Auto) Neut # (Auto) Lymph # (Auto) [place] # (Auto) Eos # (Auto) Baso # (Auto) WBC Differential Differential Comment PT INR APTT Sodium 146 H Potassium 4.2 Chloride 111 H Carbon Dioxide 28.6 Anion Gap 6 BUN 23 H Creatinine 0.94 Estimated GFR 76 L Random Glucose 106 Calcium 8.2 L Magnesium 2.2 Total Bilirubin 0.8 AST 23 ALT 27 Alkaline Phosphatase 68 Ammonia Troponin I Less than 0.02 L Total Protein 6.5 Albumin 3.5 Lipase 93 Blood Type A Positive Blood Type Recheck Required Antibody Screen Negative 03/16/18 11:30 WBC RBC Hgb 13.1 Hct 39.7 MCV MCH MCHC RDW Plt Count MPV Neut % (Auto) Lymph % (Auto) [place] % (Auto) Eos % (Auto) Baso % (Auto) Neut # (Auto) Lymph # (Auto) [place] # (Auto) Eos # (Auto) Baso # (Auto) WBC Differential Differential Comment PT INR APTT Sodium Potassium Chloride Carbon Dioxide Anion Gap BUN Creatinine Estimated GFR Random Glucose Calcium Magnesium Total Bilirubin AST ALT Alkaline Phosphatase Ammonia Troponin I Total Protein Albumin Lipase Blood Type Blood Type Recheck Antibody Screen - Imaging Impressions Chest X-Ray 03/15/18 23:13 CONCLUSION: 1. Mild patchy airspace disease in the medial right lower lung zone and left lower lung zone near the base. Findings may reflect atelectasis although aspiration cannot be excluded in the appropriate clinical setting. Assessment and Plan - Plan 87-year-old male with past medical history significant for HLD and osteoarthritis who presented to the emergency department on 03/15 after 2 episodes of bright red blood in his stool. Gastrointestinal bleed, lower -Gastroenterology consulted. Plans for colonoscopy tomorrow -Continue IV Protonix -Continue monitoring H&H, serial level stable, vital signs stable -Continue to hold aspirin Hyperlipidemia -Patient currently not on a statin. Can follow-up with PCP for lipid panel DVT prophylaxisSCDs secondary to GI bleed Discussed Condition With: Discussed with patient and RN. Discharge Planning: Plans for colonoscopy tomorrow. DC once cleared by GI.
[2018-03-16] MEDS ORDERED: PEG 3350/E-Lyte Soln 4000 ML Bottle PO ONE (15:00)
[2018-03-16 19:14] LABS: Hematocrit 33.2 % (39.0-51.0); Hemoglobin 11.8 gm/dL (13.0-17.0)
[2018-03-17 00:51] LABS: Hematocrit 33.7 % (39.0-51.0); Hemoglobin 11.4 gm/dL (13.0-17.0)
[2018-03-17] MEDS: Pantoprazole Inj 80 MG in Sodium Chlor 0.9% Inj 100 ML IV.CONT SCH ×2 (01:35→15:19)
[2018-03-17] MEDS: Sod Chloride 0.9% Inj 1,000 ML IV.CONT SCH ×3 (04:44→20:50)
[2018-03-17 07:47] LABS: Hematocrit 36.7 % (39.0-51.0); Hemoglobin 12.2 gm/dL (13.0-17.0)
[2018-03-17 08:20] LABS: Anion Gap 7 meq/L (5-15); Blood Urea Nitrogen 12 mg/dL (7-18); Calcium 7.6 mg/dL (8.5-10.1); Carbon Dioxide 25.4 meq/L (21.0-32.0); Chloride 113 meq/L (98-107); Glomerular Filtration Rate Greater Than 89 mL/min (>89); Glucose,Random 101 mg/dL (74-106); Sodium 145 meq/L (136-145)
[2018-03-17] MEDS ORDERED: Sodium Chlor 0.9% Inj 500 ML IV.CONT ONE (11:00)
[2018-03-17] MEDS ORDERED: Chlorhexidine Gluconate 2% 1 Pack (2 Cloths) TOPICAL ONE (11:00)
[2018-03-17] MEDS ORDERED: Metoprolol Tartrate 25 MG Tablet PO ONE (11:00)
--- NOTE | 2018-03-17 12:34 | P.PCN ---
Date of procedure: 03/17/18 Procedure: PROCEDURE PERFORMED Colonoscopy with snare polypectomy and biopsy PROCEDURE: The procedure, risks and benefits were discussed with Patient/POA and informed consent was obtained. Anesthesia sedated Patient with Diprivan. Patient was placed in the left lateral decubitus position. Colonoscopy: The Pentax videoscope was introduced through the rectum and advanced to cecum where the ileocecal valve and appendiceal orifice were identified. Retroflexion was performed in the rectum. Colonic prep was very good FINDINGS: Colonic withdrawal time greater than 6 minutes. As the scope was slowly withdrawn colonic mucosa was carefully inspected patient was noted to have a small nodule or bulging at the appendiceal orifice of unclear significance this was biopsied the patient was also noted to have 2 polyps in the proximal transverse colon one measuring about 4 mm the other measuring about 8 mm both were excised using cold snare technique and both were retrieved for further evaluation colonic mucosa was otherwise unremarkable and within normal limits the patient was noted to have mild diverticulosis of the sigmoid region retroflexion in the rectum was unremarkable so his rectal examination ESTIMATED BLOOD LOSS: None SPECIMENS REMOVED: Colon biopsies COMPLICATIONS: None IMPRESSION: Nodule at the appendiceal orifice Colon polyps Diverticulosis of the sigmoid region PLAN: Await biopsies High-fiber diet Advance diet as tolerated Monitor labs and transfuse if needed Report any active GI bleed to the GI team If all is stable tomorrow patient may be discharged from a GI standpoint to follow-up with GI as an outpatient Colonoscopy in 5 years Most likely patient had a diverticular bleed Anesthesia: MAC Condition: stable Disposition: floor
[2018-03-17] MEDS: amLODIPine 5 MG Tablet PO SCH (15:31)
--- NOTE | 2018-03-17 15:45 | ECG ---
Date Performed: 03/16/2018 Time Performed: 12:09:51 PTAGE: 87 years EKG: Sinus rhythm MARKED LEFT AXIS DEVIATION ABNORMAL ECG PREVIOUS TRACING : 09/30/2006 12.51 Since the previous tracing, no significant change noted DOCTOR: Shital Manzano Interpretating Date/Time 03/17/2018 15:43:45
--- NOTE | 2018-03-17 17:18 | P.PN ---
Subjective Interval history: Follow-up visit for lower GI bleed. Patient is seen and examined sitting up in bed in no acute distress. Tolerated lunch without any nausea or vomiting. Patient denies any lightheadedness, dizziness, cough, shortness of breath or chest pain. Patient underwent colonoscopy today, no further bleeding noted. Physical Exam Vital signs: Vital Signs 03/16/18 20:00 03/17/18 00:00 03/17/18 08:00 Temperature 98.1 F 97.7 F 97.8 F Pulse Rate 61 68 66 Respiratory Rate 18 22 17 Blood Pressure 145/71 H 161/78 H 162/84 H Pulse Oximetry 95 94 L 92 L 03/17/18 12:43 03/17/18 13:21 03/17/18 16:00 Temperature 97.3 F L 97.5 F L 98.1 F Pulse Rate 66 71 67 Respiratory Rate 16 19 17 Blood Pressure 150/78 H 190/93 H 148/71 H Pulse Oximetry 96 95 93 L Intake & Output 03/16/18 03/17/18 03/17/18 18:59 06:59 18:59 Intake Total 1900 / 1900 2320 / 2320 1900 / 1900 Output Total 400 / 400 Balance 1900 / 1900 2320 / 2320 1500 / 1500 Weight 101.5 kg Intake: IV 1900 / 1900 2100 / 2100 1100 / 1100 Protonix Inj 80 MG In NS Inj 100 / 100 100 / 100 100 / 100 100 ML @ 10 mls/hr IV.CONT CONT [facility] Rx#:[id number] NS Inj 1,000 ML @ 125 mls/hr IV 1800 / 1800 2000 / 2000 1000 / 1000 .CONT .Q8H [facility] Rx#:[id number] Oral 0 / 0 220 / 220 Anesthesia Amount 800 / 800 Output: Urine 400 / 400 Other: # Voids 3 2 1 Date of Last Bowel Movement 03/16/18 03/17/18 # Bowel Movements 4 Weight On Admission 101.5 kg Narrative: Gen.: No acute distress Head: Normocephalic. Atraumatic. EENT: Pupils equal round and reactive to light. Nose without drainage. Airway intact. Throat without injection. Cardiovascular: Regular rate and rhythm. No murmurs, rubs or gallops. Respiratory: Lungs clear to auscultation bilaterally. Abdomen: Soft, nontender, nondistended. Positive bowel sounds. Musculoskeletal: No gross deformities. No edema. Skin: No obvious rashes or erythema. Neuro: Sensory and motor grossly intact. Cranial nerves II through XII grossly intact. Results - Labs CBC & Chem 7: 03/17/18 07:16 10 07:16 Laboratory Results - last 24 hr 03/16/18 03/17/18 03/17/18 18:36 00:18 07:16 Hgb 11.8 L 11.4 L Hct 33.2 L 33.7 L Sodium Potassium Chloride Carbon Dioxide Anion Gap BUN Creatinine Estimated GFR Random Glucose Calcium Ammonia 33 H 03/17/18 03/17/18 07:16 07:16 Hgb 12.2 L Hct 36.7 L Sodium 145 Potassium 4.0 Chloride 113 H Carbon Dioxide 25.4 Anion Gap 7 BUN 12 Creatinine 0.77 Estimated GFR Greater than 89 Random Glucose 101 Calcium 7.6 L Ammonia Assessment and Plan - Plan 87-year-old male with past medical history significant for HLD and osteoarthritis who presented to the emergency department on 03/15 after 2 episodes of bright red blood in his stool. Gastrointestinal bleed, lower -Gastroenterology following. Patient is status post colonoscopy today. Nodule was found at the appendiceal orifice, colon polyps and diverticulosis in the sigmoid colon. -Patient is to follow-up with GI for results of biopsies. Recommend high-fiber diet. Continue monitoring for bleeding. Okay from GI standpoint to discharge tomorrow if stable. Recommend colonoscopy in 5 years. - H&H stable -Continue to hold aspirin Hyperlipidemia -Patient currently not on a statin. Can follow-up with PCP for lipid panel Hypertension -Blood pressure today in the 160s colic over 70s as high as as 190/93 -Start low-dose Norvasc 5 mg daily and monitor BPs. DVT prophylaxisSCDs secondary to GI bleed Discussed Condition With: Patient and RN. Discharge Planning: Plans for colonoscopy tomorrow. DC once cleared by GI.
[2018-03-18] MEDS: Sod Chloride 0.9% Inj 1,000 ML IV.CONT SCH ×2 (00:11→02:01)
[2018-03-18] MEDS: Pantoprazole Inj 80 MG in Sodium Chlor 0.9% Inj 100 ML IV.CONT SCH (00:35)
[2018-03-18 05:17] LABS: Hematocrit 35.4 % (39.0-51.0); Mean Corpuscular HGB Conc 33.9 % (32.0-36.0); Mean Corpuscular Hemoglobin 31.9 pg (27.0-34.0); Mean Corpuscular Volume 94.1 fL (80.0-100.0); Mean Platelet Volume 8.8 fL (7.0-11.0); Platelet Count 186 th/mm3 (150-450); Red Blood Count 3.77 mil/mm3 (4.50-5.90); Red Cell Distribution Width 13.8 % (11.6-17.2); White Blood Count 9.4 th/mm3 (4.0-11.0)
[2018-03-18 05:40] LABS: Alanine Aminotransferase 21 U/L (12-78); Anion Gap 9 meq/L (5-15); Aspartate Aminotransferase 17 U/L (15-37); Blood Urea Nitrogen 6 mg/dL (7-18); Calcium 7.7 mg/dL (8.5-10.1); Carbon Dioxide 25.9 meq/L (21.0-32.0); Chloride 111 meq/L (98-107); Glomerular Filtration Rate 83 mL/min (>89); Glucose,Random 98 mg/dL (74-106); Potassium 3.5 meq/L (3.5-5.1); Sodium 146 meq/L (136-145)
[2018-03-18 05:42] LABS: Alkaline Phosphatase 57 U/L (45-117); Total Protein 5.7 g/dL (6.4-8.2)
[2018-03-18] MEDS: amLODIPine 5 MG Tablet PO SCH (08:31)
[2018-03-18 08:50] VITALS: BP 161/76; PULSE 69; RESP 17; TEMP 97.8; O2SAT 93
--- NOTE | 2018-03-18 09:09 | P.DS ---
Date of admission: 03/16/18 01:35 Primary care physician: UNKNOWN Attending physician on discharge: Tino Alvarado Anticipated date of discharge: 03/18/18 Brief History from admission: 87-year-old male with past medical history significant for hyperlipidemia presents to the emergency department for the evaluation of 2 episodes of bright red blood in his stool. The patient reports he had 2 episodes of large volume bloody stool prior to his arrival in the emergency department. He states during the second episode he became diaphoretic. He denies any dizziness or lightheadedness. No chest pain or shortness of breath. He takes aspirin daily. He is not on the other anticoagulation. No abdominal pain. No nausea/ vomiting. No fevers/chills. No lateralizing signs/symptoms. DS: Medications - Discharge Medications Prescriptions: amlodipine [Norvasc] 5 mg PO DAILY #30 tab DS: Summary Hospital Course: 87-year-old male with past medical history significant for hyperlipidemia who presented to the emergency department on 03/16 after having 2 episodes of bright red stool and symptomatic. Patient's admitting hemoglobin was 13.7 with hematocrit 40.7. Gastroenterology was consulted and patient underwent colonoscopy on 03/17. Nodule was found at the appendiceal orifice, colon polyps and diverticulosis in the sigmoid colon. Bleed was thought to be diverticular in nature. Gastroenterology recommended high fiber diet and continue to monitor for bleeding, was cleared to discharge from GI standpoint. Will need to follow- up with office for biopsy results. Colonoscopy again in 5 years. Patient seen and examined resting in bed comfortably in no acute distress. He reports he had a good night with no acute concerns or complaints. Tolerated regular breakfast tray this morning without any nausea or vomiting. Denies any abdominal pain or discomfort. Voiding without any dysuria. No bowel movement yet however is passing flatus. Denies any chills, shortness of breath, cough, chest pain, dizziness or lightheadedness. Low-grade temp overnight noted of 99.9, CBC this morning with no leukocytosis patient afebrile this morning. Discussed with patient need prescription for Norvasc, will need to follow-up with his PCP for ongoing BP monitoring and adjustments. 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 Patient to be evaluated by physical therapist this morning. Patient uses a cane at home to ambulate, already receiving outpatient physical therapy. - Time Spent with Patient Total time spent providing and/or coordinating discharge services: Less than 30 minutes - Quality: VTE Deep Vein Thrombosis/Pulmonary Embolism Present on Admission: No Exam Vital signs: Vital Signs 03/17/18 12:43 03/17/18 13:21 03/17/18 16:00 Temperature 97.3 F L 97.5 F L 98.1 F Pulse Rate 66 71 67 Respiratory Rate 16 19 17 Blood Pressure 150/78 H 190/93 H 148/71 H Pulse Oximetry 96 95 93 L 03/17/18 20:00 03/17/18 23:59 03/18/18 08:00 Temperature 99.9 F H 98.4 F 97.8 F Pulse Rate 70 75 69 Respiratory Rate 21 21 17 Blood Pressure 157/75 H 135/68 161/76 H Pulse Oximetry 97 95 93 L Intake & Output 03/17/18 03/18/18 03/18/18 18:59 06:59 18:59 Intake Total 2620 / 2620 3172 / 3172 Output Total 400 / 400 Balance 2220 / 2220 3172 / 3172 Weight 102 kg Intake: IV 1100 / 1100 2692 / 2692 LR 1000 mL Inj 1,000 ML @ 30 1000 / 1000 mls/hr IV.CONT .Q24H [facility] Rx#: [id number] Protonix Inj 80 MG In NS Inj 100 / 100 138 / 138 100 ML @ 10 mls/hr IV.CONT CONT [facility] Rx#:[id number] NS Inj 1,000 ML @ 125 mls/hr IV 1000 / 1000 1554 / 1554 .CONT .Q8H [facility] Rx#:[id number] Oral 720 / 720 480 / 480 Anesthesia Amount 800 / 800 Output: Urine 400 / 400 Other: # Voids 3 5 Date of Last Bowel Movement 03/17/18 03/17/18 Narrative: Gen.: No acute distress Head: Normocephalic. Atraumatic. EENT: Pupils equal round and reactive to light. Nose without drainage. Airway intact. Throat without injection. Cardiovascular: Regular rate and rhythm. No murmurs, rubs or gallops. Respiratory: Lungs clear to auscultation bilaterally. Abdomen: Soft, nontender, nondistended. Positive bowel sounds. Musculoskeletal: No gross deformities. No edema. Skin: No obvious rashes or erythema. Neuro: Sensory and motor grossly intact. Cranial nerves II through XII grossly intact. Results Procedures completed during hospitalization: Colonoscopy 03/17 Pending studies at discharge: Pending at discharge 03/17/18 13:43 Surgical [PTH] Routine Labs on day of discharge: Labs from last 24 hours 03/18/18 03/18/18 04:25 04:25 WBC 9.4 RBC 3.77 L Hgb 12.0 L Hct 35.4 L MCV 94.1 MCH 31.9 MCHC 33.9 RDW 13.8 Plt Count 186 MPV 8.8 Sodium 146 H Potassium 3.5 Chloride 111 H Carbon Dioxide 25.9 Anion Gap 9 BUN 6 L Creatinine 0.87 Estimated GFR 83 L Random Glucose 98 Calcium 7.7 L Total Bilirubin 1.2 H AST 17 ALT 21 Alkaline Phosphatase 57 Total Protein 5.7 L D Albumin 3.0 L - Impressions ITS Impressions Chest X-Ray 03/15/18 23:13 CONCLUSION: 1. Mild patchy airspace disease in the medial right lower lung zone and left lower lung zone near the base. Findings may reflect atelectasis although aspiration cannot be excluded in the appropriate clinical setting. Discharge Plan - Discharge Disposition Patient Disposition: Discharge Home - Discharge Condition Condition: Good - Discharge Order Discharge Orders: Discharge Order (Routine); Ordered 03/18/18 Ordered By: Virgil Niño - Physicians Team Primary Care Provider: UNKNOWN, Attending Provider: Tino Alvarado Other Providers: Donald Luis MD
== END 2018-03-18 11:04 | disposition home or self-care (01) ==
LOC: NEPC 22:21 → NEDA 22:21 → N07 03-16 04:23
PROVIDERS: ADMIT Hospitalist; ATTEND Hospitalist
PROC: COLONOS (2018-03-17 12:01)